=== PATIENT | female | born 1995 | race Caucasian/White ===

== ENCOUNTER 2016-05-19 10:18 | Emergency (ER) | payer BC ==
[2016-05-19] MEDS ORDERED: LIDOCAINE HCL 10 APPL CARTRIDGE ONE (11:01)
[2016-05-19] MEDS ORDERED: NORMAL SALINE 1,000 ML IV ONE (11:09)
[2016-05-19] MEDS ORDERED: LIDOCAINE IV ONE ×2 (11:09→11:30)
[2016-05-19] MEDS ORDERED: CLINDAMYCIN PHOSPHATE 600 MG in DEXTROSE 5 % IN WATER 100 ML IV ONE ×2 (11:09)
[2016-05-19 11:10] LABS: Hematocrit 37.7 % (37.0-47.0); Hemoglobin 12.5 gm/dL (12.5-16.0); Mean Cell Volume 95.4 fl (78-100); Mean Corpuscular Hemoglobin 31.6 pg (27-31); Mean Corpuscular Hgb Conc 33.2 g/dl (32-36); Mean Platelet Volume 9.6 fl (6.0-9.5); Neutrophil % 62.8 % (42-75.0); Platelet Count 338 K/mm3 (150-450); Red Blood Count 3.95 M/mm3 (4.2-5.4); Red Cell Distribution Width 12.5 % (11.5-14.0)
[2016-05-19 11:23] LABS: Anion Gap 12.4 mmol/L (6.8-13.8); BUN/Creatinine Ratio 26.3 (9.0-21.6); Calcium * 9.1 mg/dL (7.9-10.9); Carbon Dioxide 26.1 mmol/L (24-32.6); Estimated Creat Clear 100.3; Potassium 3.5 mmol/L (3.4-4.6)
[2016-05-19 11:27] LABS: Prothrombin Time (Patient) 10.7 Seconds (9.4-11.4)
[2016-05-19 11:30] LABS: INR 1.03 INR (0.90-1.10)
[2016-05-19] MEDS ORDERED: LIDOCAINE HCL 20 ML UDC MM ONE (11:38)
--- NOTE | 2016-05-19 12:20 | ERNOTE ---
[facility] Date of Service: 05/19/16 Presenting Symptoms: nosebleed Time Seen by Provider: 05/19/16 10:52 Source: patient Exam Limitations: no limitations - Immun/Allergies/Home Medications Immunizations: IMMUNIZATION HX Immunizations Up to Date Yes History of Influenza Vaccine No Hx Pneumococcal Vaccination No Allergies/Adverse Reactions: Allergies Allergy/AdvReac Type Severity Reaction Status Date / Time Penicillins Allergy Intermediate Hives Verified 05/19/16 10:44 Home Medications: HOME MEDICATIONS Clindamycin HCl [Cleocin HCl] 300 mg PO TID #15 capsule 05/19/16 [Last Taken Unknown] oxyCODONE HCL/ACETAMINOPHEN [Percocet 5 MG/325 MG] 1 tab PO Q8H #12 tablet 05/19 [Last Taken Unknown] - History of Present Illness Narrative: Patient comes due to bleeding through both nares since last night. Patient denies any recent trauma to the area Severity: Present: severe ENT Location: Present: nose - both nares were bleeding at the moment of first evaluation. The blood was bright red and also extented to the posterior pharynx area Modifying Factors - Improves: Reports: other - nothing. Pressure failed to resolve problem at ER Modifying Factors - Worsens: Reports: other - Anxiety made it worse Associated Symptoms - ENT: Reports: cough. Denies: fever, malaise, voice change , sore throat, drooling Review of Systems - Review of Systems Constitutional: Present: no symptoms reported EYE: Present: no symptoms reported ENT: Present: nose pain, other - Active nasal bleeding. Absent: ear pain, nose congestion Respiratory: Present: no symptoms reported Cardiology: Present: no symptoms reported Gastrointestinal/Abdominal: Present: no symptoms reported Genitourinary: Present: no symptoms reported Musculoskeletal: Present: no symptoms reported Skin: Present: no symptoms reported Neurological: Present: no symptoms reported Hematologic/Lymphatic: Present: no symptoms reported Psych: Present: no symptoms reported - Patient's Past Medical History Patient History - Medical: No pertinent hx Patient History - Cardiac/Respiratory: No pertinent hx Patient History - Cancer: No Hx of Cancer Patient History - Surgical Procedures: No surgical history LMP (females 10-50): other - Social History Living Situations: home Smoking Status: Current every day smoker Alcohol Use: heavy Physical Exam - Physical Exam General Appearance: Present: wd/wn, alert, no apparent distress Eye Exam: Normal inspection: bilateral, PERRL: bilateral, EOMI: bilateral Ears, Nose, Throat: Present: pharyngeal erythema, other - Patient with active bleeding by both nares. Patient with no septal deformity identified.. Absent: nasal congestion, sinus pain/drainage, pharyngeal swelling, tonsillar exudate Neck: Present: normal inspection, nontender Respiratory: Present: no respiratory distress, normal breath sounds, no accessory muscle use, chest nontender, lungs clear Cardiovascular/Chest: Present: regular rate, rhythm, no murmur, normal peripheral pulses Gastrointestinal/Abdominal: Present: normal bowel sounds, nontender, nondistended, no organomegaly Extremity Exam: Present: normal inspection, non-tender, no edema, normal range of motion Neurological Exam: Present: alert, oriented, normal mood/affect, no motor/ sensory deficits Skin Exam: Present: normal color, warm/dry Lymphatic Exam: Present: no adenopathy ED Progress - Date and Time Seen: Date and Time: 05/19/16 12:09 I had presented case to ENT long distance operator Dr. Janneth Kline. Patient is to be seen on in office. Antibiotics will be continue. Patient at the moment with controlled epistaxis 05/19/16 12:11 Procedure Note: Procedure: Epistaxis management Indication: Bilateral Active Nasal Bleeding Pressure was applied and failed at ER Patient was placed bilateral Rhino Packs on nostrils. Bleeding was controlled and improved. No posterior bleeding noticed after event. Patient was given antibiotics and case was consulted with ENT long distance operator. EBL: 10mL 05/19/16 12:16 Patient at the moment with a GCS 15/15, not bleeding and improved. - Results and Orders Patient's Lab Results:: I have reviewed the patient's lab results. - Vital Signs Patient's Vital Signs:: I have reviewed the patient's vital signs. Vital Signs: Vital Signs 05/19/16 10:40 Temperature 36.0 C L Pulse Rate 98 Respiratory 16 Rate Blood Pressure 115/83 O2 Sat by Pulse 96 Oximetry - Progress/Reassessment Chief Complaint: Nose Bleed Progress:: Improved - Transfer of Care Expected Disposition: Discharge Plan - Plan Plan: Patient is to follow up with ENT at Office on Departure Clinical Impression: Epistaxis - Departure Disposition: Home self-care Condition: Stable Instructions: Nosebleed, [id number] Referrals: Fermin Kline MD [Courtesy Staff] - Prescriptions: Clindamycin HCl [Cleocin HCl] 300 mg PO TID #15 capsule oxyCODONE HCL/ACETAMINOPHEN [Percocet 5 MG/325 MG] 1 tab PO Q8H #12 tablet
[2016-05-19 12:22] VITALS: BP 123/84
== END 2016-05-19 13:45 | disposition home or self-care (01) ==
LOC: ER 10:18
PROC: 2Y41X5Z Packing of Nasal Region using Packing Material (ICD-10-PCS; principal; 2016-05-19)
DX: R04.0 Epistaxis (principal); F17.210 Nicotine dependence, cigarettes, uncomplicated

== ENCOUNTER 2016-05-19 14:35 | Observation (INO) | payer BC ==
--- NOTE | 2016-05-19 17:04 | ERNOTE ---
ENT HPI Date of Service: 05/19/16 Presenting Symptoms: nosebleed Time Seen by Provider: 05/19/16 16:48 - Immun/Allergies/Home Medications Immunizations: IMMUNIZATION HX Immunizations Up to Date Yes History of Influenza Vaccine No Hx Pneumococcal Vaccination No Allergies/Adverse Reactions: Allergies Allergy/AdvReac Type Severity Reaction Status Date / Time Penicillins Allergy Intermediate Hives Verified 05/19/16 15:13 Home Medications: HOME MEDICATIONS Clindamycin HCl [Cleocin HCl] 300 mg PO TID #15 capsule 05/19/16 [Last Taken Unknown] oxyCODONE HCL/ACETAMINOPHEN [Percocet 5 MG/325 MG] 1 tab PO Q8H #12 tablet 05/19 [Last Taken Unknown] - History of Present Illness Narrative: Patient re-start bleeding ones again and returned to the ER Severity: Present: moderate ENT Location: Present: nose Modifying Factors - Improves: Reports: nothing Modifying Factors - Worsens: Reports: nothing Prior Treament: Reports: treated by physician - by me today, similar symptoms before Review of Systems - Review of Systems Constitutional: Present: malaise EYE: Present: no symptoms reported ENT: Present: nose pain - Nasal Bleeding Respiratory: Present: no symptoms reported Cardiology: Present: no symptoms reported Gastrointestinal/Abdominal: Present: no symptoms reported Genitourinary: Present: no symptoms reported Musculoskeletal: Present: no symptoms reported Skin: Absent: rash, lesions Neurological: Present: no symptoms reported Endocrine: Present: no symptoms reported Hematologic/Lymphatic: Absent: easy bruising, easy bleeding - Narrative Narrative: Patient was recently Tx for nasal bleeding - Patient's Past Medical History Patient History - Medical: No pertinent hx Patient History - Cardiac/Respiratory: No pertinent hx Patient History - Cancer: No Hx of Cancer Patient History - Surgical Procedures: No surgical history - Social History Living Situations: home Alcohol Use: heavy Physical Exam - Physical Exam General Appearance: Present: wd/wn, alert, no apparent distress Eye Exam: Normal inspection: bilateral, PERRL: bilateral Ears, Nose, Throat: Present: pharyngeal erythema, pharyngeal swelling, other - Patient at the moment is with mild oozing on the L nare. No posterior bleeding noticed. Patient has bilateral balloons on her nose at the moment Neck: Present: normal inspection, nontender Respiratory: Present: no respiratory distress, normal breath sounds, no accessory muscle use Cardiovascular/Chest: Present: regular rate, rhythm, no murmur, normal peripheral pulses Gastrointestinal/Abdominal: Present: normal bowel sounds, nontender, nondistended, soft, no organomegaly Back Exam: Present: no CVA tenderness Extremity Exam: Present: normal inspection, non-tender, no edema, normal range of motion Neurological Exam: Present: alert, oriented, normal mood/affect, no motor/ sensory deficits Skin Exam: Absent: diaphoresis, cyanosis, jaundice, pallor, skin rash Lymphatic Exam: Present: no adenopathy ED Progress - Date and Time Seen: Date and Time: 05/19/16 17:00 Nasal balloons were adjusted. 05/19/16 17:05 I had presented case to Dr. Nielson and recommendation for observation and hydration was given. - Results and Orders Patient's Lab Results:: I have reviewed the patient's lab results. - Vital Signs Patient's Vital Signs:: I have reviewed the patient's vital signs. Vital Signs: Vital Signs 05/19/16 05/19/16 13:45 15:08 Temperature 36.0 C L 36.0 C L Pulse Rate 108 H Respiratory 16 Rate Blood Pressure 123/84 115/76 O2 Sat by Pulse 98 Oximetry - Progress/Reassessment Chief Complaint: Nose Bleed Progress:: Improved Plan - Plan Plan: Patient will be place in hospital. ENT has been re-consulted Departure Clinical Impression: Epistaxis - Departure Disposition: [facility] Condition: Good
[2016-05-19] MEDS ORDERED: CLINDAMYCIN PHOSPHATE 600 MG in DEXTROSE 5 % IN WATER 100 ML IV SCH ×2 (17:45)
--- NOTE | 2016-05-19 19:52 | HP ---
Chief Complaint - Chief Complaint Date of Service: 05/19/16 Time of Service: 19:49 Chief Complaint: epistaxis History of Present Illness: Pt is a 20 year old female with a PMH only significant for migraines and ETOH abuse. She come into the ER with complaints of epistaxis which started last night. She states she simply stood up around 9pm and nose began to bleed, left nostril to begin with. She has never had nose bleed before, denies any family or personal history of clotting or bleeding disorders. Last night was able to stop it by packing it with tissue, then as soon as pt woke up at 10am this am nose bleed started again. She came into the ER this morning and her nose was packed and she was dc with f/u instructions to see ENT on with RX of Percocet and Clindamycin. She returned to the ER around 6pm due to having heavy post nasal drainage from the bleeding, so much causing her to have nausea and vomiting. Pt has a history of heavy ETOH abuse, multiple shots of vodka per night, never went through DTs. Did not drink last night 05/18/2015, last drink was on 05/17/2015. +bruising easily. Pt also endorses taking "a lot" of ibuprofen for the past few months for headaches. Is not able to quantify amount or dosing. She will be admit to observation for failure to control epistaxis with follow up in am with ENT. - Patient's Past Medical History Patient History - Medical: Headache Patient History - Cardiac/Respiratory: No pertinent hx Patient History - Cancer: No Hx of Cancer Patient History - Surgical Procedures: No surgical history Patient History - Other: None - Family History Family History:: no familial bleeding tendencies, no family history of clotting disorders - Social History Living Situations: home Smoking Status: Current every day smoker Cigarettes Packs Per Day: 1 - ppd Have you smoked in the past 12 months: Yes Do you dip or chew tobacco: No Patient requests Smoking Cessation Consult: Yes Initiate information on Smoking Cessation: Yes Alcohol Use: heavy - multiple shots of vodka a night Drug Use: none - Immunizations Immunizations Up to Date: Yes Hx Pneumococcal Vaccination: No History of Influenza Vaccine: Yes Review Of Systems (GEN) - Review of Systems Generalized/Overall Review: Present: Weakness EENTM: Present: No Symptoms Reported, Nose Pain, Other - epistaxis with nasal drainage Respiratory: Present: No Symptoms Reported Cardiac: Present: No Symptoms Reported Abdominal: Present: Nausea, Vomiting, Hematemesis Genitourinary: Present: No Symptoms Reported Musculoskeletal: Present: No Symptoms Reported Neurological: Present: No Symptoms Reported Skin: Present: No Symptoms Reported Endocrine: Present: No Symptoms Reported Allergies/Adverse Reactions: Allergies Allergy/AdvReac Type Severity Reaction Status Date / Time Penicillins Allergy Intermediate Hives Verified 05/19/16 19:27 Home Medications: HOME MEDICATIONS Clindamycin HCl [Cleocin HCl] 300 mg PO TID #15 capsule 05/19/16 [Last Taken 18:00] oxyCODONE HCL/ACETAMINOPHEN [Percocet 5 MG/325 MG] 1 tab PO Q8H #12 tablet 05/19 [Last Taken 05/19/16 18:00] Exam - Exam Vital Signs: Vital Signs - Last Taken Temp 36.0 C L 05/19/16 15:08 Pulse 108 H 05/19/16 15:08 Resp 16 05/19/16 15:08 BP 115/76 05/19/16 15:08 Pulse Ox 98 RA 05/19/16 15:08 Constitutional: Present: Alert, Oriented x3, Cooperative, Mild distress ENT Exam: Present: hearing grossly normal, pharynx normal, nasal drainage - dried blood on external nares with bilateral packing in place. Trickle of bright red blood noted to posterior pharnx causing nausea Eye Exam: bilateral eye: normal inspection, PERRL Back Exam: Present: normal inspection Respiratory: Present: chest non-tender, lungs clear, normal breath sounds, no respiratory distress Cardiovascular/Chest: Present: normal peripheral pulses, regular rate, rhythm, no chest tenderness, no edema, no murmur Peripheral Pulses: dorsalis-pedis (R): 2+, dorsalis-pedis (L): 2+, radial (R): 2 +, radial (L): 2+ Abdomen: Present: Normal bowel sounds, soft, nontender, nondistended, no rebound tenderness /Rectal: Present: Exam deferred Extremity: Present: normal range of motion, non-tender, normal inspection, no pedal edema, no calf tenderness Skin Exam: Present: normal color, warm/dry, no cyanosis Neurologic: Present: no motor/sensory deficits, alert, normal mood/affect, oriented x 3 Appearance: Present: appropriate appearance, appropriate insight, neat, no memory impairment Eye contact: Present: cooperative, good eye contact, normal speech Thoughts: Present: normal thought pattern, no apparent hallucination Diagnostic Studies: Laboratory Tests 05/19/16 05/19/16 10:58 10:58 Hgb 12.5 Hct 37.7 Plt Count 338 PT 10.7 INR (Anticoag Therapy) 1.03 PTT ([place]) 27.0 Sodium Potassium BUN Creatinine Alkaline Phosphatase 05/19/16 10:58 Hgb Hct Plt Count PT INR (Anticoag Therapy) PTT ([place]) Sodium 141 Potassium 3.5 BUN 20 Creatinine 0.76 Alkaline Phosphatase Assessment/Plan - Assessment/Plan (1) Epistaxis Assessment: Maintain packing in bilateral nares. If bleeding continues, can consider removing and applying Afrin for vasoconstriction and control of bleeding that way, has been effectively controlled with pt sucking on ice. It is possible that bleed is to far posterior for packing to control. Likely a combination of NSAID and ETOH abuse. Will recheck H/H and ENT to see in am. -ENT consult -NPO except ice chips -D5.45 with 20K @125ml/hr -No nose blowing -Keep packing in until seen by ENT -HOB >45* at all times -PT/INR and H/H in am Problem: Acute (2) Tobacco abuse Assessment: -Nicotine patch daily Problem: Chronic (3) ETOH abuse Assessment: Pt with a history of heavy alcohol abuse, last drink 05/17/2015. Will place on [facility] protocol. Problem: Chronic
[2016-05-19] MEDS: POTASSIUM CHLORIDE 20 MEQ in DEXTROSE 5%-0.5 NORMAL SALINE 990 ML IV SCH (20:03)
[2016-05-19] MEDS ORDERED: ONDANSETRON HCL/PF 2 MG/ML VIAL IV PRN (20:07)
[2016-05-19] MEDS ORDERED: ONDANSETRON HCL/PF 2 MG/ML VIAL IV STA (20:07)
[2016-05-19] MEDS ORDERED: NICOTINE 7 MG PATC TD ONE ×2 (22:08→22:09)
[2016-05-19] MEDS: NICOTINE 14 MG PATC TD SCH (22:12)
[2016-05-20] MEDS ORDERED: ACETAMINOPHEN 325 MG TABLET PO PRN (03:11)
[2016-05-20] MEDS ORDERED: OXYMETAZOLINE HCL 150 SPRAY BTL NS ONE ×2 (04:25→05:52)
[2016-05-20] MEDS: POTASSIUM CHLORIDE 20 MEQ in DEXTROSE 5%-0.5 NORMAL SALINE 990 ML IV SCH ×2 (05:17→13:14)
[2016-05-20 05:33] LABS: Hematocrit 24.9 % (37.0-47.0); Hemoglobin 8.3 gm/dL (12.5-16.0); Mean Cell Volume 95.4 fl (78-100); Mean Corpuscular Hemoglobin 31.8 pg (27-31); Mean Corpuscular Hgb Conc 33.3 g/dl (32-36); Mean Platelet Volume 9.7 fl (6.0-9.5); Neutrophil # 9.6 K/mm3 (1.3-6.0); Neutrophil % 80.5 % (42-75.0); Platelet Count 281 K/mm3 (150-450); Red Blood Count 2.61 M/mm3 (4.2-5.4); Red Cell Distribution Width 12.4 % (11.5-14.0); White Blood Count 11.9 K/mm3 (4.0-10.5)
[2016-05-20 05:44] LABS: Prothrombin Time (Patient) 11.5 Seconds (9.4-11.4)
[2016-05-20 05:48] LABS: INR 1.11 INR (0.90-1.10); Partial Thrombolplastin Time 28.3 Seconds (24-32)
[2016-05-20 05:55] LABS: Albumin * 2.9 gm/dl (3.4-5.0); Anion Gap 11.7 mmol/L (6.8-13.8); BUN/Creatinine Ratio 38.2 (9.0-21.6); Bilirubin, Total 0.2 mg/dL (0.0-1.1); Ca. Corrected For Albumin 8.2 mg/dL (8.4-10.2); Calcium * 7.6 mg/dL (7.9-10.9); Carbon Dioxide 25.7 mmol/L (24-32.6); Potassium 3.4 mmol/L (3.4-4.6); Total Protein 5.3 gm/dL (6.2-8.2)
--- NOTE | 2016-05-20 14:43 | PN ---
Subjective - Date and Time Seen Date: 05/20/16 Time: 11:45 Subjective Narrative: patient seen today in bed with male visitor at the bedside, she is AOX3 no acute distress, she denies nasal bleeding since this morning, no vomiting or coughing up of blood. No headaches or dizziness but feels a little, but its much better than she felt last night. She has nasal pack and haven't had any bleeding around packing, but feels congested. Objective - Review of Systems Generalized/Overall Review: Reports: No Symptoms Reported EENTM: Reports: Nose Congestion Respiratory: Reports: No Symptoms Reported Cardiac: Reports: No Symptoms Reported Abdominal: Reports: No Symptoms Reported Genitourinary Symptoms: Reports: No Symptoms Reported Musculoskeletal Complaints: Reports: No Symptoms Reported Neurological: Reports: No Symptoms Reported Skin: Reports: No Symptoms Reported Endocrine: Reports: No Symptoms Reported - Vitals Vitals: Last Vital Signs Temp 36.7 C 05/20/16 03:25 Pulse 110 H 05/20/16 10:04 Resp 24 H 05/20/16 10:04 BP 127/83 05/20/16 10:04 Pulse Ox 99 05/20/16 10:04 - Abnormal Lab Findings Abnormal Lab Findings: Abnormal Lab Results 05/20/16 05/20/16 05/20/16 Range/Units 05:00 05:20 05:20 WBC 11.9 H D (4.0-10.5) K/mm3 RBC 2.61 L (4.2-5.4) M/mm3 Hgb 8.3 L (12.5-16.0) gm/dL Hct 24.9 L (37.0-47.0) % MCH 31.8 H (27-31) pg MPV 9.7 H (6.0-9.5) fl Immature Gran # (Auto) 0.04 H (0.000-0.0310) K/mm3 Neutrophils % 80.5 H (42-75.0) % Lymphocytes % 12.4 L (20-51) % Neutrophils # 9.6 H (1.3-6.0) K/mm3 PT 11.5 H (9.4-11.4) Seconds INR (Anticoag Therapy) 1.11 H (0.90-1.10) INR Est GFR (Non-Af Amer) 147 H D (60-130) mL/min BUN/Creatinine Ratio 38.2 H (9.0-21.6) Random Glucose 131 H D (70-110) mg/dL Calcium 7.6 L (7.9-10.9) mg/dL Calcium Adj for Albumin 8.2 L (8.4-10.2) mg/dL ALT 14 L (19-67) U/L Alkaline Phosphatase 48 L (50-170) U/L Total Protein 5.3 L (6.2-8.2) gm/dL Albumin 2.9 L (3.4-5.0) gm/dl - Exam Constitutional: Present: Alert, Oriented x3, Cooperative, Well developed, No distress ENT Exam: Present: nasal congestion, other - Right nostril packing Neck: Present: full range of motion Breasts: Present: Exam deferred Respiratory: Present: chest non-tender, lungs clear, normal breath sounds, no respiratory distress Cardiovascular/Chest: Present: normal peripheral pulses, no chest tenderness, no edema, tachycardia Abdomen: Present: Normal bowel sounds, soft, nontender, nondistended, no rebound tenderness /Rectal: Present: Exam deferred Extremity: Present: normal range of motion, non-tender, normal inspection, no pedal edema, no calf tenderness Skin Exam: Present: normal color, warm/dry, no cyanosis Neurologic: Present: oriented x 3 Appearance: Present: appropriate appearance Eye contact: Present: cooperative, good eye contact Thoughts: Present: normal thought pattern Assessment/Plan Plan Narrative: Epistaxis Packing was placed overnight and has remained in placed , no reports of observed bleeding since. 05/19/16 Hgb 12.5 ----->8.3 today remains stable 05/19/16 PT/INR 27/1.03---->11.5/1.11 05/19/16 PTT 27--->28.3 today ENT consult NPO except ice chips Continue D5.45 with 20K @125ml/hr Instructed on No nose blowing, picking or removal of packing until seen by ENT Keep HOB >45 at all times Monitor PT/INR and H/H in am Substance abuse Smoking cessation education Nicotine patch daily Pt with a history of heavy alcohol abuse, last drink 05/17/2015. [facility] protocol. AA counseling upon discharge VTE ppx: SCD and ambulate GI PPX: protonix Code Status: Full - Problems/Diagnosis (1) Epistaxis Problem: Acute (2) ETOH abuse Problem: Chronic (3) Tobacco abuse Problem: Chronic
[2016-05-20] MEDS ORDERED: PANTOPRAZOLE SODIUM 40 MG in NORMAL SALINE 100 ML IV SCH (14:45)
[2016-05-20 19:45] LABS: Hematocrit 22.8 % (37.0-47.0)
[2016-05-20 19:46] LABS: Hemoglobin 7.6 gm/dL (12.5-16.0)
--- NOTE | 2016-05-20 20:05 | DS ---
Transfer Discharge Summary - Diagnosis(s)/Problems (1) Epistaxis Problem: Acute (2) Tobacco abuse Problem: Chronic (3) ETOH abuse Problem: Chronic - Course Description of Stay: Pt was admitted to the floor after a return visit to the ER for a right posterior nare epistaxis. Bleeding has been off and on controlled with rhino rockets and Afrin. ENT unfortunately is not available to see her and feel that the pt should be transferred to a higher level of care for possible IR consult for a coil to control the bleeding. Her H/H has had a significant drop from 12.5 /37.7 on admission to 7.6/22.8 most recent. She will be typed and crossed prior to transfer. Pt has remained hemodynamically stable throughout her stay. Procedures Performed: none - Results and Findings Results and Findings: Laboratory Results - last 24 hr 05/20/16 05/20/16 05/20/16 05:00 05:20 05:20 WBC 11.9 H D RBC 2.61 L Hgb 8.3 L Hct 24.9 L MCV 95.4 MCH 31.8 H MCHC 33.3 RDW 12.4 Plt Count 281 MPV 9.7 H Immature Gran % (Auto) 0.30 Immature Gran # (Auto) 0.04 H Neutrophils % 80.5 H Lymphocytes % 12.4 L Monocytes % 6.3 Eosinophils % 0.3 Basophils % 0.2 Nucleated RBC % 0.0 Neutrophils # 9.6 H Lymphocytes # 1.5 Monocytes # 0.8 Eosinophils # 0.0 Absolute Basophils 0.0 PT 11.5 H INR (Anticoag Therapy) 1.11 H PTT ([place]) 28.3 Sodium 139 Plasma Sodium 139 Potassium 3.4 Chloride 105 Carbon Dioxide 25.7 Anion Gap 11.7 BUN 21 Creatinine 0.55 Est GFR (Non-Af Amer) 147 H D BUN/Creatinine Ratio 38.2 H Random Glucose 131 H D Calcium 7.6 L Calcium Adj for Albumin 8.2 L Total Bilirubin 0.2 AST 9 ALT 14 L Alkaline Phosphatase 48 L Total Protein 5.3 L Albumin 2.9 L 05/20/16 17:31 WBC RBC Hgb 7.6 L* Hct 22.8 L* MCV MCH MCHC RDW Plt Count MPV Immature Gran % (Auto) Immature Gran # (Auto) Neutrophils % Lymphocytes % Monocytes % Eosinophils % Basophils % Nucleated RBC % Neutrophils # Lymphocytes # Monocytes # Eosinophils # Absolute Basophils PT INR (Anticoag Therapy) PTT ([place]) Sodium Plasma Sodium Potassium Chloride Carbon Dioxide Anion Gap BUN Creatinine Est GFR (Non-Af Amer) BUN/Creatinine Ratio Random Glucose Calcium Calcium Adj for Albumin Total Bilirubin AST ALT Alkaline Phosphatase Total Protein Albumin - Medications Medications: Active Medications Acetaminophen (Tylenol) 650 mg PO Q4H PRN PRN Reason: Mild pain Stop: 06/19/16 03:12 Last Admin: 05/20/16 03:39 Dose: 650 mg Potassium Chloride 20 meq/ (Dextrose/Sodium Chloride) 1,000 mls @ 126 mls/hr IV .[id number] [facility] Stop: 06/18/16 17:46 Last Admin: 05/20/16 13:14 Dose: 126 mls/hr Pantoprazole Sodium 40 mg/ (Sodium Chloride) 100 mls @ 400 mls/hr IV Q24H [facility] Stop: 06/19/16 14:46 Last Admin: 05/20/16 15:44 Dose: 400 mls/hr Nicotine (Nicoderm) 14 mg TD Q24H [facility] Stop: 06/18/16 20:31 Last Admin: 05/19/16 22:12 Dose: 14 mg Ondansetron HCl (Zofran) 8 mg IV Q6H PRN PRN Reason: Nausea And Vomiting Stop: 06/18/16 20:08 Last Admin: 05/20/16 04:49 Dose: 8 mg Discontinued Medications Clindamycin Phosphate 600 mg/ (Dextrose/Water) 104 mls @ 300 mls/hr IV Q8H [facility] PRN Reason: Protocol Stop: 06/18/16 17:46 Last Admin: 05/19/16 20:03 Dose: 300 mls/hr Ondansetron HCl (Zofran) 8 mg IV ONCE STA Stop: 05/19/16 20:08 Last Admin: 05/19/16 20:15 Dose: 8 mg Oxymetazoline HCl (Afrin Nasal [place]) 1 spray NS ONCE ONE Stop: 05/20/16 04:26 Last Admin: 05/20/16 04:49 Dose: Not Given Oxymetazoline HCl (Afrin Nasal [place]) 1 spray NS ONCE ONE Stop: 05/20/16 05:53 Last Admin: 05/20/16 05:57 Dose: 1 spray - Disposition Disposition: Other health care facility Condition: Good Discharge Date: 05/20/16 Discharge Time: 21:00
[2016-05-20] MEDS: NICOTINE 14 MG PATC TD SCH (20:18)
[2016-05-20 20:31] VITALS: BP 120/82
== END 2016-05-20 21:45 | disposition short-term general hospital (02) ==
LOC: ER 14:35 → MS 17:13
PROVIDERS: ADMIT Internal Medicine; ATTEND Internal Medicine
DX: R04.0 Epistaxis (principal); F10.10 Alcohol abuse, uncomplicated; Z72.0 Tobacco use
CPT/HCPCS: 36415; 80053; 85014; 85018; 85025; 85610; 85730; 96365; 96367; 96375; 99283; G0378

== ENCOUNTER 2019-04-01 12:09 | Inpatient (IN) ==
[2019-04-01] MEDS ORDERED: OXYTOCIN/DEXTROSE 5%-WATER 30 UNITS/500 ML BAG IV ONE (18:28)
[2019-04-01] MEDS ORDERED: RINGER'S SOLUTION,LACTATED 1,000 ML IV ONE (18:28)
[2019-04-01] MEDS ORDERED: BUTORPHANOL TARTRATE 2 MG/ML VIAL IV PRN ×2 (18:28)
[2019-04-01] MEDS ORDERED: MISOPROSTOL 100 MCG TABLET VG PRN (18:28)
[2019-04-01] MEDS ORDERED: ONDANSETRON 4 MG TAB.RAPDIS PO PRN (18:28)
[2019-04-01] MEDS ORDERED: LIDOCAINE HCL 50 ML VIAL PERI PRN (18:28)
[2019-04-01] MEDS: VANCOMYCIN HCL 1 GM in DEXTROSE 5 % IN WATER 250 ML IV SCH ×2 (19:32)
[2019-04-01 20:03] LABS: Cocaine Ur Negative (NEGATIVE); Urine Barbiturate Negative (NEGATIVE); Urine Benzodiazepines Negative (NEGATIVE); Urine Opiates Negative (NEGATIVE); Urine PCP Negative (NEGATIVE); Urine THC Negative (NEGATIVE)
[2019-04-02] MEDS ORDERED: CALCIUM CARBONATE 500 MG TAB.CHEW PO ONE (04:00)
[2019-04-02] MEDS: RINGER'S SOLUTION,LACTATED 1,000 ML IV PRN ×2 (04:16→14:36)
[2019-04-02] MEDS ORDERED: ACETAMINOPHEN 500 MG TABLET PO ONE (06:49)
[2019-04-02] MEDS: VANCOMYCIN HCL 1 GM in DEXTROSE 5 % IN WATER 250 ML IV SCH ×4 (07:06→07:49)
--- NOTE | 2019-04-02 08:38 | HP ---
Chief Complaint - Chief Complaint Date of Service: 04/02/19 Time of Service: 08:28 Chief Complaint: induction of labor History of Present Illness: 23 year old at 40w 2d who presents for a medical induction of labor due to post due date. She reports regular ctx. She denies vb or lof. Fetus is active. Medical History (Last Reviewed 04/02/19 @ 08:34 by Roma English MD) Fatty (change of) liver, not elsewhere classified Marijuana use Onset Date: Unknown Erythema multiforme Onset Date: 12/04/99 GERD (gastroesophageal reflux disease) Onset Date: Unknown Insomnia Onset Date: Unknown Seasonal allergies Onset Date: Unknown Major depression Onset Date: 05/08/09 Single Episode UTI (urinary tract infection) Onset Date: Unknown Varicella without mention of complication Onset Date: ~05/2006 Surgical History: Surgical History (Last Reviewed 04/01/19 @ 20:46 by Kalpana Pedraza RN) No significant past surgical history Family History: Family History (Last Reviewed 04/02/19 @ 08:34 by Roma English MD) Mother Cancer Thyroid Grandmother Cancer Lung & pancreatic Social History: (Last Reviewed 04/02/19 @ 08:34 by Roma English MD) Social History: adopted: No intermediate: No Marital status: Single household members: family number of children: 0 current occupational status: unemployed 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 Highest education level completed: 11th grade Sexually Active: Yes Service: No Tobacco: Smoking Status: Current every day smoker tobacco type: cigarettes Smoking cigarettes per day: 20.0 Smoking packs per day: 1 Alcohol: alcohol intake: former Substance Use: substance use type: marijuana Dietary Habits: caffeine: Yes caffeine comment: 1 daily Type: carbonated beverages Exercise: frequency: other Review Of Systems (GEN) - Review of Systems Generalized/Overall Review: Present: No Symptoms Reported Misc: All systems neg except as marked Immunizations: IMMUNIZATION HX Immunizations Up to Date Yes History of Influenza Vaccine Yes Hx Pneumococcal Vaccination No Allergies/Adverse Reactions: Allergies Allergy/AdvReac Type Severity Reaction Status Date / Time Penicillins Allergy Intermediate Hives Verified 04/01/19 18:29 Home Medications: HOME MEDICATIONS Vits96/Iron Fum/Folic [ S] 1 tab PO DAILY 04/01/19 [Last Taken 04/01/19 17:00] Exam - Exam Vital Signs: Vital Signs - Last Taken Temp 37.2 C 04/01/19 18:55 Pulse 72 04/01/19 18:55 Resp 16 04/01/19 18:55 BP 113/77 04/01/19 18:55 Pulse Ox 97 04/01/19 18:55 Constitutional: Present: Alert, Oriented x3, Cooperative, No distress ENT Exam: Present: hearing grossly normal Back Exam: Present: normal inspection, no CVA tenderness Respiratory: Present: lungs clear, normal breath sounds Cardiovascular/Chest: Present: regular rate, rhythm Abdomen: Present: soft, nontender, nondistended /Rectal: Present: Other - 2/50/-2 AROM for clear fluid Extremity: Present: non-tender, no calf tenderness Skin Exam: Present: normal color, warm/dry, no cyanosis Appearance: Present: appropriate appearance Eye contact: Present: cooperative Thoughts: Present: normal thought pattern Diagnostic Studies: Laboratory Results Urine Opiates Screen Negative (NEGATIVE) 04/01/19 19:45 Barbiturate Screen Negative (NEGATIVE) 04/01/19 19:45 Ur Phencyclidine Scrn Negative (NEGATIVE) 04/01/19 19:45 Urine Amphetamine Negative (NEGATIVE) 04/01/19 19:45 U Benzodiazepines Scrn Negative (NEGATIVE) 04/01/19 19:45 Urine Cocaine Screen Negative (NEGATIVE) 04/01/19 19:45 Urine Marijuana (THC) Negative (NEGATIVE) 04/01/19 19:45 Blood Type A Positive 04/01/19 18:40 Antibody Screen Negative 04/01/19 18:40 Assessment/Plan - Narrative Narrative: 23 year old at 40w 2d Medical induction for post due dates. The patient received one dose of cytotec 25 mcg PV. Reassess cervical exam and if no cervical change will start pitocin GBS negative but culture not current and thus antibiotic prophylaxis initiated with vancomycin due to PCN allergy with high risk of anaphylaxis and no sensitivities available T cat 1
[2019-04-02] MEDS ORDERED: ONDANSETRON HCL/PF 2 MG/ML VIAL IV PRN (08:44)
[2019-04-02] MEDS ORDERED: NALOXONE HCL 1 MG/1 ML SYRG IV PRN (08:44)
[2019-04-02] MEDS ORDERED: BUPIVACAINE HCL/0.9 % NACL/PF 250 ML EP PRN (08:44)
[2019-04-02] MEDS ORDERED: BUPIVACAINE HCL/PF 30 ML VIAL EP SCH (08:45)
--- NOTE | 2019-04-02 08:57 | ANES ---
Anesthesia Pre Procedure Eval Vitals/Labs: Last Vital Signs Temp 37.2 C 04/01/19 18:55 Pulse 72 04/01/19 18:55 Resp 16 04/01/19 18:55 BP 113/77 04/01/19 18:55 Pulse Ox 97 04/01/19 18:55 HOME MEDICATIONS Vits96/Iron Fum/Folic [ S] 1 tab PO DAILY 04/01/19 [Last Taken 04/01/19 17:00] Allergies/Adverse Reactions: Allergies Allergy/AdvReac Type Severity Reaction Status Date / Time Penicillins Allergy Intermediate Hives Verified 04/01/19 18:29 - Planned Procedure Planned Procedure: Labor epidural Medication List Reviewed:: Yes Allergies Verified: Yes Medical History (Last Reviewed 04/02/19 @ 08:56 by Hemant Pace CRNA) Fatty (change of) liver, not elsewhere classified Marijuana use Onset Date: Unknown Erythema multiforme Onset Date: 12/04/99 GERD (gastroesophageal reflux disease) Onset Date: Unknown Insomnia Onset Date: Unknown Seasonal allergies Onset Date: Unknown Major depression Onset Date: 05/08/09 Single Episode UTI (urinary tract infection) Onset Date: Unknown Varicella without mention of complication Onset Date: ~05/2006 Family History (Last Reviewed 04/02/19 @ 08:34 by Roma English MD) Mother Cancer Thyroid Grandmother Cancer Lung & pancreatic - Family Anesthesia History Family History:: no untoward family reactions to anesthesia, no familial bleeding tendencies, no family history of clotting disorders, no family history of premature - Anesthesia Assessment and Plan ASA Class: PS, II Anesthesia Type Plan: Epidural
--- NOTE | 2019-04-02 09:16 | ANES ---
Anesthesia Procedure Note Procedure Note: ANESTHESIA PROCEDURE NOTE Date of Procedure: 04/02/2019. Time of procedure: 0900. Performed by: Hemant Pace CRNA Sap Bw Bi Developer: None. Preprocedure diagnosis: Active labor. Post procedure diagnosis: Same. Procedure: Insertion of labor epidural. Indications: The patient is a 23-year-old female in active labor requesting labor epidural for pain management. Findings: See below. Details of the procedure: The patient was placed in a sitting position. DuraPrep as well as Betadine swabs X3 was applied to the patient's back. Patient was then draped in a sterile fashion. Lidocaine 1% was infiltrated to the skin and subcutaneous tissues at the level of the L3-4 interspace. The epidural space was identified using a 18-gauge Tuohy needle with [id number] technique. Epidural catheter was inserted to a depth of 10 centimeters at skin. Negative test dose was elicited using 3 mL of 1.5% preservative-free lidocaine plus epinephrine 1 200,000. The epidural catheter was then taped and secured in place. A loading dose of 8 mL of 0.25% preservative-free bupivacaine was administered to the epidural catheter after negative aspiration for blood and CSF. EBL: Minimal. Fluids: N/A. Specimen: N/A. Post procedure condition: The patient tolerated the procedure well. No complications were noted. Thank you for this consultation. Hemant Pace CRNA
--- NOTE | 2019-04-02 09:22 | ANES ---
Post Anesthesia Assessment - Vital Signs Vitals: Last Vital Signs Temp 36.5 C 04/02/19 09:17 Pulse 78 04/02/19 09:17 Resp 20 04/02/19 09:17 BP 112/70 04/02/19 09:17 Pulse Ox 99 04/02/19 09:17 Airway Patency: Normal - Mental Status Level Of Consciousness: Awake - N/V Assessment Nausea/Vomiting Presence: None Dehydration:: No
[2019-04-02] MEDS ORDERED: MISOPROSTOL 200 MCG TABLET RC ONE (16:07)
--- NOTE | 2019-04-02 16:20 | OR ---
Operative Report - Dictated Report Narrative: Date of delivery: 04/02/2019 Time of delivery: 1601 Gender: male weight: 3141 grams APGARS: 01/09 Procedure: Description of the procedure: The patient is 23 year old at 40w 2d who presented for a medical IOL due to post due date. She progressed to complete dilation. She delivered a viable male in compound presentation with the right hand presenting along with the vertex. The shoulders delivered without difficulty followed by the rest of the infant. The cord was clamped and cut. The placenta delivered by expression and appeared intact. EBL: 200 mL Lacerations: right labia which was not repaired because it was hemostatic Complications: none History for MU Definition: * The number of deliveries resulting in a live the patient experienced prior to current hospitalization * The previous delivery of live twins or any live multiple gestation is considered one live event. *If primagravida or nulliparous is documented select zero for the number of previous live births. Live Events: 0
[2019-04-02] MEDS ORDERED: SENNOSIDES 8.6 MG TABLET PO PRN (16:21)
[2019-04-02] MEDS ORDERED: OXYTOCIN/DEXTROSE 5%-WATER 30 UNITS/500 ML BAG IV ONE (16:21)
[2019-04-02] MEDS ORDERED: BISACODYL 10 MG SUPP.RECT RC PRN (16:21)
[2019-04-02] MEDS ORDERED: diphenhydrAMINE HCL 25 MG CAPSULE PO PRN (16:21)
[2019-04-02] MEDS ORDERED: HYDROCORTISONE 30 APPL TUBE TP PRN (16:21)
[2019-04-02] MEDS ORDERED: BENZOCAINE/MENTHOL 81 SPRAY CAN TP PRN (16:21)
[2019-04-02] MEDS ORDERED: GLYCERIN/WITCH HAZEL LEAF 40 APPL BOX TP PRN (16:21)
[2019-04-02] MEDS: HYDROcodone/ACETAMINOPHEN 1 EACH TABLET PO PRN (17:03)
[2019-04-03] MEDS: DOCUSATE SODIUM 100 MG CAPSULE PO SCH ×3 (04:40→20:27)
[2019-04-03] MEDS: HYDROcodone/ACETAMINOPHEN 1 EACH TABLET PO PRN ×3 (08:37→20:27)
[2019-04-03] MEDS: IBUPROFEN 800 MG TABLET PO PRN ×2 (08:37→16:32)
[2019-04-03] MEDS: PRENATAL VITS96/IRON FUM/FOLIC 1 TAB TABLET PO SCH (08:37)
[2019-04-03] MEDS: NICOTINE 7 MG PATC TD SCH (12:08)
--- NOTE | 2019-04-03 12:34 | PN ---
Subjective - Date and Time Seen Date: 04/03/19 Time: 09:00 Subjective Narrative: Patient without complaints Objective Objective Narrative: See vital signs - Review of Systems Generalized/Overall Review: Reports: No Symptoms Reported Misc: All systems neg except as marked - Vitals Vitals: Last Vital Signs Temp 36.8 C 04/03/19 08:05 Pulse 70 04/03/19 08:05 Resp 18 04/03/19 08:05 BP 101/66 04/03/19 08:05 Pulse Ox 98 04/03/19 08:05 - Exam Constitutional: Present: Alert, Oriented x3, Cooperative, No distress Abdomen: Present: soft, nontender, nondistended - fundus is firm Extremity: Present: non-tender, no calf tenderness Skin Exam: Present: normal color, warm/dry, no cyanosis Appearance: Present: appropriate appearance Eye contact: Present: cooperative Thoughts: Present: normal thought pattern Cauti Physician Documentation - Urinary Catheter Management Urethral (Berrios) Urethral Indwelling: No Date of Insertion: 04/02/19 Time of Insertion: 09:05 Assessment/Plan Plan Narrative: PPD 1 s/p Doing well Discharge tomorrow
[2019-04-04] MEDS: IBUPROFEN 800 MG TABLET PO PRN ×3 (01:59→15:58)
[2019-04-04] MEDS: HYDROcodone/ACETAMINOPHEN 1 EACH TABLET PO PRN ×3 (01:59→15:58)
[2019-04-04] MEDS: DOCUSATE SODIUM 100 MG CAPSULE PO SCH (08:11)
[2019-04-04] MEDS: PRENATAL VITS96/IRON FUM/FOLIC 1 TAB TABLET PO SCH (08:11)
[2019-04-04 08:16] VITALS: BP 102/73
--- NOTE | 2019-04-04 08:38 | PN ---
Subjective - Date and Time Seen Date: 04/04/19 Time: 08:37 Subjective Narrative: Patient without complaints Objective Objective Narrative: See vital signs - Review of Systems Generalized/Overall Review: Reports: No Symptoms Reported Misc: All systems neg except as marked - Vitals Vitals: Last Vital Signs Temp 36.6 C 04/04/19 06:15 Pulse 60 04/04/19 06:15 Resp 18 04/04/19 06:15 BP 102/73 04/04/19 06:15 Pulse Ox 97 04/04/19 06:15 - Exam Constitutional: Present: Alert, Oriented x3, Cooperative Abdomen: Present: soft, nontender, nondistended - fundus is firm Extremity: Present: non-tender, no calf tenderness Skin Exam: Present: normal color, warm/dry, no cyanosis Appearance: Present: appropriate appearance Eye contact: Present: cooperative Thoughts: Present: normal thought pattern Cauti Physician Documentation - Urinary Catheter Management Urethral (Berrios) Urethral Indwelling: No Date of Insertion: 04/02/19 Time of Insertion: 09:05 Assessment/Plan Plan Narrative: PPD 2 s/p Doing well Discharge home Follow-up in 4 weeks
[2019-04-04] MEDS: NICOTINE 7 MG PATC TD SCH (11:52)
== END 2019-04-04 16:55 | disposition home or self-care (01) | DRG 806 ==
LOC: OB 18:14
PROVIDERS: ADMIT Obstetrics & Gynecology; ATTEND Obstetrics & Gynecology
CPT/HCPCS: 59025; 80307; 86850